=== PATIENT | male | born 1965 | race Caucasian/White ===

== ENCOUNTER 2019-05-06 10:35 | Outpatient (CLI) | payer OTHER, SELFPAY ==
[2019-05-06 11:28] LABS: D Dimer 0.27 ug/mL (<0.48)
== END 2019-05-06 10:36 | disposition home or self-care (01) ==
PROVIDERS: PCP Family Medicine; Visit Provider Family Medicine
DX: R00.1 Bradycardia, unspecified (principal)
CPT/HCPCS: 36415; 85380

== ENCOUNTER → 2022-07-24 08:19 | Outpatient (CLI) | payer OTHER, SELFPAY ==
--- NOTE | ~2022-07-24 | CT_ITS ---
EXAMINATION:CT lung screening DATE: 07/24/2022 08:36 INDICATION: Personal history of nicotine dependence. Current smoker with 40 pack year history. TECHNIQUE: Computed tomography (CT) of the chest was performed without intravenous contrast. Automate d exposure control and iterative reconstruction technique were employed. The dose-length product (DLP ) was 401.08 mGy-cm. COMPARISON: Chest CT 11/11/2017 FINDINGS: There is mild emphysema. There is a 17 mm nodule in right lower lobe that measured 13 mm on 11/11/2017. There is an 8 mm nodule in lingula without change. Calcified pulmonary nodules and calcif ied hilar and mediastinal lymph nodes are consistent with old granulomatous disease. There is a 6 mm nodule in left lower lobe. There is a 5 mm nodule in lingula. No pleural effusion. The heart size is normal. No pericardial effusion. There is a small sliding hiatal hernia. There is chronic splenomegal y. Calcifications in the spleen are consistent with old granulomatous disease. There is a hemangioma in T1 vertebral body. There is mild thoracic spondylosis. There are disc replacements in cervical spi ne. IMPRESSION: 1. Lung-RADS category 4B: Very suspicious. Consider CT-guided biopsy of the 17 mm right lower lobe no dule. Reviewed, dictated and finalized at location A. IMPRESSION: 1. Lung-RADS category 4B: Very suspicious. Consider CT-guided biopsy of the 17 mm right lower lobe nodule.
== END ==
PROVIDERS: PCP Family Medicine; Visit Provider Family Medicine
DX: Z12.2 Encounter for screening for malignant neoplasm of respiratory organs (principal); F17.210 Nicotine dependence, cigarettes, uncomplicated
CPT/HCPCS: 71271